=== PATIENT | male | born 1985 ===

== ENCOUNTER 2020-12-10 20:54 | Emergency (ER) | payer SELFPAY ==
[~2020-12-10] VITALS: Ht 190.5 cm; Wt 95.5 kg
[2020-12-10 20:56] VITALS: BP 147/88
[2020-12-10] MEDS ORDERED: AMOX1TAB15 PO (20:58)
== END 2020-12-10 22:00 | disposition left against medical advice (07) ==
LOC: EMS 20:57
DX: R10.9 Unspecified abdominal pain (principal); Z53.21 Procedure and treatment not carried out due to patient leaving prior to being seen by health care provider